=== PATIENT | female | born 1995 | race African-American/Black ===

== ENCOUNTER 2023-06-02 17:07 | Inpatient (IN) | payer SELFPAY ==
[2023-06-02 20:10] LABS: #Monocytes 0.6 10x3/uL (0.0-1.1); #Neutrophils 2.8 10x3/uL (1.5-8.4); %Basophils 0.2 % (0.0-2.0); %Eosinophils 0.7 % (0.0-6.0); %Lymphocytes 36.5 % (18.0-47.0); %Neutrophils 51.2 % (40.0-75.0); Hemoglobin 6.6 g/dL (12.0-15.5); Mean Corpuscular Hemoglobin 20.8 pg (27.0-33.0); Mean Corpuscular Volume 69.4 fl (81.6-98.3); Mean Platelet Volume 9.9 fl (7.4-10.4); Platelet Count 270 10x3/uL (150-450); RBC Distribution Width 23.9 % (11.5-14.5); Red Blood Cell (RBC) Count 3.17 10x6/uL (3.90-5.03); White Blood Cell (WBC) Count 5.4 10x3/uL (3.5-10.5)
[2023-06-02 20:15] LABS: ALT (SGPT) 8 U/L (8-55); AST (SGOT) 15 U/L (5-34); Albumin 3.7 g/dL (3.5-5.0); Alkaline Phosphatase 69 U/L (40-110); Anion Gap 13 mmol/L (10-20); BUN (Urea Nitrogen) 6 mg/dL (7.0-18.7); Bilirubin, Total 0.5 mg/dL (0.2-1.2); Calc. Creatinine Clearance 0 mL/min (70-130); Calcium 8.7 mg/dL (7.8-10.44); Carbon Dioxide 20 mmol/L (22-29); Chloride 108 mmol/L (98-107); Estimated GFR 96; Globulin 3.4 g/dL (2.4-3.5); Glucose 99 mg/dL (70-105); Potassium 2.8 mmol/L (3.5-5.1); Protein, Total 7.1 g/dL (6.0-8.3); Sodium 138 mmol/L (136-145)
[2023-06-02 20:17] LABS: BHCG - Serum Negative (NEGATIVE); Pregs Control Background? CLEAR/WHITE (CLR/WHITE); Pregs Control Bar Appear? YES (CONTROL BAR)
[2023-06-02] MEDS ORDERED: Potassium Chloride 20 MEQ TAB ONE (20:47)
[2023-06-03 05:23] LABS: Hematocrit 23.7 % (34.9-44.5); Hemoglobin 7.4 g/dL (12.0-15.5)
[2023-06-03 05:29] LABS: Anion Gap 11 mmol/L (10-20); BUN (Urea Nitrogen) 7 mg/dL (7.0-18.7); Calc. Creatinine Clearance 0 mL/min (70-130); Calcium 8.4 mg/dL (7.8-10.44); Carbon Dioxide 23 mmol/L (22-29); Chloride 107 mmol/L (98-107); Estimated GFR 94; Glucose 89 mg/dL (70-105); Potassium 3.3 mmol/L (3.5-5.1); Sodium 138 mmol/L (136-145)
[2023-06-03] MEDS: Ketorolac Tromethamine 10 MG TAB PO SCH (05:30)
[2023-06-03] MEDS: Potassium Chloride 20 MEQ TAB PO SCH (08:02)
[2023-06-03] MEDS: HYDROcodone/Acetaminophen 7.5/325 mg Tablet PO PRN (09:07)
[2023-06-03] MEDS: Ondansetron ODT 4 MG TAB PO PRN (09:07)
[2023-06-03] MEDS ORDERED: Morphine 4 MG/ML VIAL SLOW IVP SCH (10:45)
[2023-06-03 11:16] LABS: #Monocytes 0.6 10x3/uL (0.0-1.1); #Neutrophils 7.4 10x3/uL (1.5-8.4); %Basophils 0.2 % (0.0-2.0); %Eosinophils 0.4 % (0.0-6.0); %Lymphocytes 17.5 % (18.0-47.0); %Monocytes 6.4 % (0.0-10.0); %Neutrophils 75.3 % (40.0-75.0); Hematocrit 25.8 % (34.9-44.5); Mean Corpuscular Hemoglobin 22.2 pg (27.0-33.0); Mean Corpuscular Volume 71.7 fl (81.6-98.3); Mean Platelet Volume 9.8 fl (7.4-10.4); Platelet Count 236 10x3/uL (150-450); RBC Distribution Width 22.9 % (11.5-14.5); White Blood Cell (WBC) Count 9.8 10x3/uL (3.5-10.5)
[2023-06-03 11:28] LABS: ALT (SGPT) 11 U/L (8-55); AST (SGOT) 21 U/L (5-34); Albumin 3.8 g/dL (3.5-5.0); Alkaline Phosphatase 81 U/L (40-110); Anion Gap 12 mmol/L (10-20); BUN (Urea Nitrogen) 8 mg/dL (7.0-18.7); Bilirubin, Total 0.7 mg/dL (0.2-1.2); Calc. Creatinine Clearance 0 mL/min (70-130); Carbon Dioxide 21 mmol/L (22-29); Chloride 106 mmol/L (98-107); Estimated GFR 95; Globulin 3.7 g/dL (2.4-3.5); Glucose 95 mg/dL (70-105); Potassium 2.9 mmol/L (3.5-5.1); Protein, Total 7.5 g/dL (6.0-8.3); Sodium 136 mmol/L (136-145)
[2023-06-03] MEDS: Meperidine HCl/PF 25 MG (1 mL) VIAL IM SCH (11:39)
[2023-06-03] MEDS: Famotidine/PF 20 mg/2ml Vial SLOW IVP SCH ×2 (11:39→20:14)
[2023-06-03] MEDS: Lactated Ringer's 1,000 ML IV SCH (11:40)
[2023-06-03] MEDS ORDERED: Morphine 2 MG/ML VIAL SLOW IVP PRN (11:55)
[2023-06-03] MEDS: Potassium Chloride 10 MEQ in Premix 1 BAG IVPB SCH ×2 (11:58→17:02)
[2023-06-03] MEDS: Ondansetron PF 4 MG/2 ML Vial IVP PRN (19:15)
[2023-06-03 20:24] LABS: Anion Gap 13 mmol/L (10-20); BUN (Urea Nitrogen) 9 mg/dL (7.0-18.7); Calc. Creatinine Clearance 0 mL/min (70-130); Calcium 8.9 mg/dL (7.8-10.44); Carbon Dioxide 22 mmol/L (22-29); Chloride 106 mmol/L (98-107); Estimated GFR 112; Glucose 107 mg/dL (70-105); Sodium 137 mmol/L (136-145)
[2023-06-03] MEDS: Metoclopramide HCl 10 MG (2 mL) VIAL IVP SCH (20:29)
[2023-06-03] MEDS: Morphine 4 MG/ML VIAL SLOW IVP SCH (20:29)
[2023-06-04 05:11] LABS: Anion Gap 10 mmol/L (10-20); BUN (Urea Nitrogen) 9 mg/dL (7.0-18.7); Calc. Creatinine Clearance 0 mL/min (70-130); Calcium 8.5 mg/dL (7.8-10.44); Carbon Dioxide 23 mmol/L (22-29); Chloride 104 mmol/L (98-107); Estimated GFR 112; Glucose 86 mg/dL (70-105); Potassium 3.4 mmol/L (3.5-5.1); Sodium 134 mmol/L (136-145)
[2023-06-04 05:12] LABS: #Monocytes 0.7 10x3/uL (0.0-1.1); #Neutrophils 4.2 10x3/uL (1.5-8.4); %Basophils 0.3 % (0.0-2.0); %Eosinophils 0.4 % (0.0-6.0); %Monocytes 9.4 % (0.0-10.0); %Neutrophils 56.5 % (40.0-75.0); Hematocrit 23.7 % (34.9-44.5); Hemoglobin 7.4 g/dL (12.0-15.5); Mean Corpuscular HGB CONC 31.2 g/dL (32.0-36.0); Mean Corpuscular Hemoglobin 22.5 pg (27.0-33.0); Mean Platelet Volume 9.8 fl (7.4-10.4); Platelet Count 206 10x3/uL (150-450); RBC Distribution Width 23.2 % (11.5-14.5); Red Blood Cell (RBC) Count 3.29 10x6/uL (3.90-5.03); White Blood Cell (WBC) Count 7.4 10x3/uL (3.5-10.5)
[2023-06-04] MEDS: Potassium Chloride 10 MEQ in Premix 1 BAG IVPB SCH (06:36)
[2023-06-04] MEDS: Metoclopramide HCl 10 MG (2 mL) VIAL IVP SCH (06:36)
[2023-06-04] MEDS: FLU VACC QS2023-24(6MOS UP)/PF 60 MCG/0.5 ML SYRINGE IM ONE (08:22)
[2023-06-04] MEDS: Lactated Ringer's 1,000 ML IV SCH (08:23)
[2023-06-04] MEDS: HYDROcodone/Acetaminophen 5/325 mg Tablet PO PRN (11:00)
[2023-06-04] MEDS: Ketorolac Tromethamine 30 MG (1 mL) VIAL IVP PRN (12:55)
[2023-06-04] MEDS: Ondansetron PF 4 MG/2 ML Vial IVP PRN (12:55)
[2023-06-04] MEDS: Metoclopramide HCl 10 MG (2 mL) VIAL IVP PRN (16:41)
[2023-06-04] MEDS: Promethazine HCl 25 MG/ML VIAL IM PRN (17:15)
[2023-06-04] MEDS: Morphine 4 MG/ML VIAL SLOW IVP PRN (17:42)
[2023-06-04] MEDS: Pantoprazole 40 MG VIAL IVP SCH (18:15)
[2023-06-04] MEDS: Lidocaine 2% Viscous Solution 20 ML, Aluminum & Magnesium Hydroxide 30 ML, Donnatal Eli... SSW SCH (18:16)
[2023-06-04] MEDS: Lidocaine 2% Viscous 10 mL, Alum & Magn 30 mL SSW SCH (19:14)
[2023-06-05] MEDS ORDERED: Ibuprofen 600 MG TAB PO PRN (06:33)
[2023-06-05] MEDS: Metoclopramide HCl 10 MG TAB PO SCH (08:19)
[2023-06-05] MEDS: Famotidine 20 MG TAB PO SCH (08:19)
[2023-06-05] MEDS ORDERED: Pantoprazole 40 MG VIAL IVP SCH (09:00)
[2023-06-05] MEDS: Ondansetron ODT 4 MG TAB SL PRN (09:34)
[2023-06-05] MEDS: Promethazine HCl 25 MG/ML VIAL IM SCH (10:01)
[2023-06-05] MEDS: Ondansetron PF 4 MG/2 ML Vial IVP SCH (13:20)
[2023-06-05 13:29] LABS: #Monocytes 0.6 10x3/uL (0.0-1.1); %Basophils 0.1 % (0.0-2.0); %Lymphocytes 16.6 % (18.0-47.0); %Monocytes 7.9 % (0.0-10.0); Hematocrit 25.2 % (34.9-44.5); Hemoglobin 7.9 g/dL (12.0-15.5); Mean Corpuscular HGB CONC 31.3 g/dL (32.0-36.0); Mean Corpuscular Hemoglobin 22.7 pg (27.0-33.0); Mean Corpuscular Volume 72.4 fl (81.6-98.3); Mean Platelet Volume 10.2 fl (7.4-10.4); Platelet Count 216 10x3/uL (150-450); RBC Distribution Width 23.9 % (11.5-14.5); Red Blood Cell (RBC) Count 3.48 10x6/uL (3.90-5.03)
[2023-06-05 13:38] LABS: ALT (SGPT) 10 U/L (8-55); AST (SGOT) 25 U/L (5-34); Albumin 3.6 g/dL (3.5-5.0); Alkaline Phosphatase 69 U/L (40-110); Anion Gap 13 mmol/L (10-20); BUN (Urea Nitrogen) 7 mg/dL (7.0-18.7); Bilirubin, Total 0.4 mg/dL (0.2-1.2); Calc. Creatinine Clearance 0 mL/min (70-130); Calcium 8.7 mg/dL (7.8-10.44); Carbon Dioxide 22 mmol/L (22-29); Chloride 104 mmol/L (98-107); Estimated GFR 107; Globulin 3.2 g/dL (2.4-3.5); Glucose 94 mg/dL (70-105); Potassium 3.2 mmol/L (3.5-5.1); Protein, Total 6.8 g/dL (6.0-8.3); Sodium 136 mmol/L (136-145)
[2023-06-05 15:18] LABS: Amphetamine Not Detected (NotDetected); Barbiturates Screen Not Detected (NotDetected); Benzodiazepine Screen Not Detected (NotDetected); Cocaine Metabolite Screen Not Detected (NotDetected); Methadone Not Detected (NotDetected); Methamphetamine Not Detected (NotDetected); Opiate Screen Detected (NotDetected); Oxycodone Screen Not Detected (NotDetected); Phencyclidine (PCP) Not Detected (NotDetected); THC/Cannabinoid Screen Detected (NotDetected); Tricyclic Screen Not Detected (NotDetected)
[2023-06-05] MEDS: Promethazine HCl 12.5 MG, Admixture Fee 1 EACH in Sodium Chloride 0.9% 50 ML IVPB SCH (15:32)
[2023-06-05 15:55] LABS: Anisocytosis MODERATE=16-30 cells (100X) (0-5/hpf); Elliptocytes SLIGHT = 2-5 cells (100X) (0-1/hpf); Hypochromia MODERATE=16-30 cells (100X) (0-5/hpf); Microcytosis MODERATE=15-30 cells (100X) (0-5/hpf); Poikilocytosis SLIGHT = 6-15 cells (100X) (0-5/hpf)
[2023-06-05 15:56] LABS: Platelet Adequacy Comment Appears Adequate; Tear Drops SLIGHT = 2-5 cells (100X) (0-1/hpf)
[2023-06-05] MEDS ORDERED: Mirtazapine 15 MG TAB PO SCH (15:56)
[2023-06-05] MEDS: Lidocaine 2% Viscous Solution 10 ML, Aluminum & Magnesium Hydroxide 30 ML SSW SCH (16:06)
[2023-06-05] MEDS: Mirtazapine 15 MG TAB PO SCH ×2 (16:11→21:41)
[2023-06-05] MEDS: diphenhydrAMINE 50 MG/ML VIAL IVP SCH (18:04)
[2023-06-05] MEDS: Calcium Carbonate 500 MG ChewTAB PO PRN (18:04)
[2023-06-05] MEDS: Metoclopramide HCl 10 MG (2 mL) VIAL IVP SCH (18:43)
[2023-06-05] MEDS ORDERED: Haloperidol Lactate 5 MG/ML VIAL SLOW IVP SCH (20:00)
[2023-06-05] MEDS: Lactated Ringer's 1,000 ML IV SCH (20:25)
[2023-06-06] MEDS: Haloperidol Lactate 5 MG/ML VIAL IM SCH (00:48)
[2023-06-06 08:01] VITALS: BP 143/83; TEMP 98.9
== END 2023-06-06 10:25 | disposition home or self-care (01) | DRG 761 ==
LOC: CSHERS 17:07 → CSHPP 06-03 02:01 → OBSVTOIN 06-05 11:26
PROVIDERS: ADMIT Obstetrics & Gynecology; ATTEND Obstetrics & Gynecology
PROC: 30233N1 Transfusion of Nonautologous Red Blood Cells into Peripheral Vein, Percutaneous Approach (ICD-10-PCS; principal; 2023-06-02)
DX: N83.209 Unspecified ovarian cyst, unspecified side (principal); F17.210 Nicotine dependence, cigarettes, uncomplicated; D64.9 Anemia, unspecified; E87.6 Hypokalemia
CPT/HCPCS: 36415; 36430; 76856; 80048; 80053; 80306; 82274; 84703; 85014; 85018; 85025; 86850; 86900; 86901; 96372; 96374; 96375; 96376; C9113; G0378; J1200; J1630; J1885; J2175; J2270; J2405; J2550; J2765; J3480; J7120; P9016; Q0162; S0028